=== PATIENT | female | born 1960 | race Caucasian/White ===

== ENCOUNTER → 2017-09-10 | Outpatient (CLI) | payer OTHER, SELFPAY | PROVIDERS: Visit Provider Internal Medicine | DX: Z79.01 Long term (current) use of anticoagulants (principal) | CPT/HCPCS: 36415; 85610 ==

== ENCOUNTER → 2017-11-21 16:31 | Outpatient (REF) | payer OTHER, SELFPAY ==
[2017-11-21 17:06] LABS: Basophils # 0.1 K/mm3 (0-0.2); Basophils % 0.5 % (0.1-2.0); Eosinophils # 0.2 K/mm3 (0.0-0.4); Eosinophils % 2.4 % (0.1-12.0); Hematocrit 47.3 % (37.0-47.0); Hemoglobin 15.2 g/dL (12.2-16.2); Lymphocytes # 2.9 K/mm3 (0.7-4.5); Lymphocytes % 35.1 K/mm3 (10-50); Mean Corpuscular HGB Conc 32.1 g/dL (31.8-35.4); Mean Corpuscular Hemoglobin 27.9 pg (27.0-31.2); Mean Corpuscular Volume 86.9 fl (81-99); Mean Platelet Volume 7.7 fl (7.4-10.4); Monocytes # 0.4 K/mm3 (0.1-1.0); Monocytes % 4.9 % (1.7-9.3); Neutrophils # 4.8 K/mm3 (1.8-7.8); Platelet Count 277 K/mm3 (142-424); Red Blood Count 5.44 M/mm3 (4.20-5.40); Red Cell Distribution Width 13.9 % (11.5-17.5); White Blood Count 8.3 K/mm3 (4.8-10.8)
[2017-11-21 17:09] LABS: INR 3.39 (0.9-1.1); Prothrombin Time 37.1 seconds (9.4-11.8)
[2017-11-21 17:36] LABS: Alanine Aminotransferase 43 U/L (12-78); Albumin Level 3.6 gm/dL (3.4-5.0); Alkaline Phosphatase 73 U/L (46-116); Anion Gap 12.4 mEq/L (5-15); Aspartate Amino Transferase 25 U/L (15-37); Bilirubin,Total 0.3 mg/dL (0.2-1.0); Blood Urea Nitrogen 14 mg/dL (7-18); Calcium 9.2 mg/dL (8.5-10.1); Carbon Dioxide 30 mmol/L (21.0-32.0); Chloride 100 mmol/L (98-107); Cholesterol 206 mg/dL (140-200); Creatinine,Serum 0.89 mg/dL (0.55-1.02); Estimated Glomerular Filt Rate 65 ml/min (>60); GFR (African American) 79 ML/MIN (>60); Globulin 3.7 gm/dl (1.3-3.2); Glucose 185 mg/dL (74-106); HDL Cholesterol 51 mg/dL (29-89); LDL Cholesterol 122 mg/dL (0-130); Potassium 3.4 mmoL/L (3.5-5.1); Sodium 139 mmol/L (136-145); Total Protein,Serum 7.3 gm/dL (6.4-8.2); Triglycerides 166 mg/dL (30-200); VLDL Cholesterol 33 mg/dL (0-40)
[2017-11-21 18:17] LABS: Hemoglobin A1C 10.2 % (0.0-7.0)
== END ==
LOC: LAB 16:31
PROVIDERS: Visit Provider Internal Medicine
DX: I10 Essential (primary) hypertension (principal); E11.42 Type 2 diabetes mellitus with diabetic polyneuropathy; L97.524 Non-pressure chronic ulcer of other part of left foot with necrosis of bone; Z79.01 Long term (current) use of anticoagulants; Z51.81 Encounter for therapeutic drug level monitoring; Z86.711 Personal history of pulmonary embolism; Z86.73 Personal history of transient ischemic attack (TIA), and cerebral infarction without residual deficits
CPT/HCPCS: 80053; 80061; 83036; 85025; 85610

== ENCOUNTER 2017-11-26 16:22 | Outpatient (RCR) | payer OTHER, SELFPAY | END 2017-11-26 16:23 | disposition home or self-care (01) | LOC: PT 16:22 | PROVIDERS: Family Provider Internal Medicine; PCP Internal Medicine Adolescent Medicine; Visit Provider Internal Medicine ==

== ENCOUNTER → 2018-04-03 15:43 | Outpatient (CLI) | payer OTHER, SELFPAY ==
--- NOTE | 2018-04-03 15:45 | MM_ITS ---
MM Dig screening mamm BI w/CAD CAD Screening COMPARISON: None, patient had previous mammograms more than 10 years ago and they're not available for review INDICATION: There Is a history of breast cancer in patient's maternal grandmother. TECHNIQUE: Standard CC and MLO images were obtained. R2 CAD reviewed. FINDINGS: The breasts are composed almost entirely of fat with very minimal scattered fibroglandular densities noted. There is a benign-appearing nodular density near the axillary tail the right breast likely a rectal cyst or fibroadenoma. There is no suspicious lesion and there are no suspicious microcalcifications. IMPRESSION: Fatty type breast parenchyma with no suspicious lesion seen BI-RADS Category: 2 Benign Finding(s) RECOMMENDED FOLLOW-UP: 1YR - 1 YEAR FOLLOW-UP (A letter has been sent to the patient regarding results of the study.)
== END ==
PROVIDERS: Family Provider Internal Medicine; PCP Internal Medicine Adolescent Medicine; Visit Provider Internal Medicine
DX: Z12.31 Encounter for screening mammogram for malignant neoplasm of breast (principal)
CPT/HCPCS: 77067

== ENCOUNTER → 2018-05-22 15:44 | Outpatient (CLI) | payer OTHER, SELFPAY ==
--- NOTE | 2018-05-22 15:51 | XR_ITS ---
XR foot LT min 3V Ordering Physician: Erickson Hayes Patient Age: 58 years: Female HISTORY: Chronic ulcer infection second toe. Diabetic. TECHNIQUE: 3 views left foot COMPARISON :05/16/2017 left forefoot, left toe but this radiographic study. FINDINGS Swelling is seen at the second toe most evident distally there does seem to be slight soft tissue irregularity here which may reflect the history of ulcer at tip of second toe. There is a subtle lucent 2 mm focus at the very tip of the distal tuft of second toe.... Similar feature was seen previously 05/16/2017 & overall appears fairly stable... May reflect the contour variation of distal tuft. Difficult to exclude a prior small erosion but given its stability, suggest follow-up ongoing coned-down views. Correlation clinical picture required as the soft tissue swelling does appear to be slightly more pronounced at second toe today versus 2017 . Third fourth and fifth toe intact. Only slight flexion deformity at these latter toes noted. Great toe intact. With Suggestion minor degenerative changes first MTP joint. The lateral film demonstrates generous, stable dorsal talar beaking.. On also note the generous ovoid calcification at the plantar aspect of foot likely at or inferior to the plantar aponeurosis this appears stable measuring 16 mm length mm x 8 mm.. Also note Generous plantar calcaneal spur measuring over 11 mm. & 8 prominent thick spur at the insertion Achilles tendon measuring 14-15 mmLength Also suggestion of developing degenerative changes subtalar joint.. IMPRESSION 1. Generous Soft tissue swelling at the second toe 2... Subtle tiny lucent focus distal distal tuft second toe.. Appears fairly stable since previous 2017 study and may merely reflect normal contour variation, but would suggest follow-up additional coned-down views of this second toe to address this area with maximum detailed. Possible MRI follow-up may be helpful if concern persists clinically 3.... Plantar Calcaneal spur.. Stable Additional separate Ovoid calcification at or just beneath the plantar aponeurosis mid arch.- Unchanged since prior study .
== END ==
PROVIDERS: PCP Internal Medicine; Visit Provider Internal Medicine
DX: L97.529 Non-pressure chronic ulcer of other part of left foot with unspecified severity (principal); E11.49 Type 2 diabetes mellitus with other diabetic neurological complication
CPT/HCPCS: 73630

== ENCOUNTER → 2018-06-05 15:35 | Outpatient (CLI) | payer OTHER, SELFPAY ==
[2018-06-05 16:27] LABS: INR 2.68 (0.9-1.1); Prothrombin Time 26.8 seconds (9.4-11.8)
[2018-06-05 18:09] LABS: Alanine Aminotransferase 48 U/L (12-78); Albumin Level 3.8 gm/dL (3.4-5.0); Alkaline Phosphatase 61 U/L (46-116); Anion Gap 14.8 mEq/L (5-15); Aspartate Amino Transferase 29 U/L (15-37); Bilirubin,Total 0.3 mg/dL (0.2-1.0); Blood Urea Nitrogen 24 mg/dL (7-18); Calcium 9.4 mg/dL (8.5-10.1); Carbon Dioxide 26 mmol/L (21.0-32.0); Chloride 106 mmol/L (98-107); Creatinine,Serum 1.16 mg/dL (0.55-1.02); Estimated Glomerular Filt Rate 48 ml/min (>60); GFR (African American) 58 ML/MIN (>60); Globulin 3.7 gm/dl (1.3-3.2); Glucose 241 mg/dL (74-106); Potassium 3.8 mmoL/L (3.5-5.1); Sodium 143 mmol/L (136-145); Total Protein,Serum 7.5 gm/dL (6.4-8.2)
== END ==
PROVIDERS: PCP Internal Medicine; Visit Provider Internal Medicine
DX: L02.612 Cutaneous abscess of left foot (principal); Z79.01 Long term (current) use of anticoagulants
CPT/HCPCS: 36415; 80053; 85610

== ENCOUNTER → 2018-06-12 14:07 | Outpatient (CLI) | payer OTHER, SELFPAY ==
--- NOTE | 2018-06-12 14:08 | MR_ITS ---
MR foot LT wo/w con HISTORY: Nonhealing lesion of the second toe ITS.REASON: Evaluate for osteomyelitis ORDERING PHYSICIAN: Yanet Mulligan DPM PATIENT AGE: 58 years Comparison: None TECHNIQUE: Standard multiplanar multiecho sequences are performed without and with gadolinium enhancement. FINDINGS: No obvious fracture or dislocation. No soft tissue mass. There is mild soft tissue swelling at the distal aspect of the second toe with slight increased T2 signal of the soft tissues suggesting cellulitis. No definite increased STIR signal is evident at the second toe no obvious contrast enhancement. There is some mild enhancement of the soft tissues along the plantar surface of the second toe but no obvious bone marrow enhancement. There is volume averaging artifact on the enhanced coronal images however, this is present involving all of the toes. IMPRESSION: 1. No convincing evidence of osteomyelitis of the second toe. 2. Suspect cellulitis of the second
== END ==
PROVIDERS: Family Provider Internal Medicine; PCP Internal Medicine; Visit Provider Podiatrist
DX: E08.621 Diabetes mellitus due to underlying condition with foot ulcer (principal); L03.032 Cellulitis of left toe; L97.524 Non-pressure chronic ulcer of other part of left foot with necrosis of bone
CPT/HCPCS: 73720; A9576

== ENCOUNTER → 2018-06-26 14:24 | Outpatient (CLI) | payer OTHER, SELFPAY ==
--- NOTE | 2018-06-26 14:26 | US_ITS ---
US Arterial Ankle Brachial Ind History: Diabetes, hypertension, left toe ulcer ITS.REASON: Skin Change ORDERING PHYSICIAN: Yanet Mulligan DPM PATIENT AGE: 58 years TECHNIQUE: Segmental pressures obtained of both right and left leg. These are compared to brachial blood pressure to yield index at each level sampled including summary TAINA. The data sheets from the procedure are available in PACS FINDINGS Rest study only performed today No prior studies available for comparison. Blood pressures reported are in millimeters mercury. RIGHT LEG TAINA = .9. RIGHT LEG TBI=.7 Brachial BP: 161 Thigh BP: 162 Calf BP: 151 Ankle PT: 140 Ankle DP : 136 Digit =116 LEFT LEG TAINA = .9 LEFT LEG TBI= .7 Brachial BPD: 153 Thigh BP: 163 Calf BP: 160 Ankle PT:144 Ankle DP: 126 Digit = 108 Pulses and waveforms: Normal IMPRESSION: The ABIs as reported above are within normal limits. Waveforms and pulses are also unremarkable. The TBI's are within normal limits The ABIs and TBI's are at the lower limits of normal
== END ==
PROVIDERS: Family Provider Internal Medicine; PCP Internal Medicine; Visit Provider Podiatrist
DX: R09.89 Other specified symptoms and signs involving the circulatory and respiratory systems (principal)
CPT/HCPCS: 93922

== ENCOUNTER → 2019-01-05 10:49 | Outpatient (CLI) | payer OTHER, SELFPAY ==
[2019-01-05 14:52] LABS: Anion Gap 14.8 mEq/L (5-15); Blood Urea Nitrogen 17 mg/dL (7-18); Carbon Dioxide 25 mmol/L (21.0-32.0); Chloride 103 mmol/L (98-107); Creatinine,Serum 0.91 mg/dL (0.55-1.02); Estimated Glomerular Filt Rate 63 ml/min (>60); GFR (African American) 77 ML/MIN (>60); Glucose 240 mg/dL (74-106); Potassium 3.8 mmoL/L (3.5-5.1); Sodium 139 mmol/L (136-145)
== END ==
PROVIDERS: PCP Nurse Practitioner Family; Visit Provider Nurse Practitioner Family
DX: N39.0 Urinary tract infection, site not specified (principal); E08.22 Diabetes mellitus due to underlying condition with diabetic chronic kidney disease; Z79.4 Long term (current) use of insulin
CPT/HCPCS: 36415; 80048; 87086; 87088; 87186

== ENCOUNTER → 2019-02-08 09:50 | Outpatient (CLI) | payer OTHER, SELFPAY | PROVIDERS: PCP Nurse Practitioner Family; Visit Provider Nurse Practitioner Family | DX: N39.0 Urinary tract infection, site not specified (principal) | CPT/HCPCS: 87086; 87088; 87186 ==

== ENCOUNTER → 2019-03-17 08:56 | Outpatient (CLI) | payer OTHER, SELFPAY ==
--- NOTE | 2019-03-17 09:02 | US_ITS ---
US urinary bladder ORDERING PHYSICIAN : Erickson Hayes PATIENT AGE: 59 years GENDER: Female HISTORY:ITS.REASON: RECURRENT UTIS COMPARISON: None. TECHNIQUE: Routine FINDINGS: The fluid-filled urinary bladder measures 9.5 x 6.1 x 8.1 cm with volume of 247 mL. Post void urinary bladder is 3.7 x 3.2 x 4.5 cm with residual volume of 28.8 mL. IMPRESSION: Unremarkable urinary bladder ultrasound with mild post void residual.
--- NOTE | 2019-03-17 09:02 | US_ITS ---
US Kidney ORDERING PHYSICIAN : Erickson Hayes PATIENT AGE: 59 years GENDER: Female HISTORY:ITS.REASON: RECURRENT UTI COMPARISON: None. TECHNIQUE: Routine FINDINGS: Right kidney is 12.8 x 6.3 x 8.9 cm. Left kidney is 8.3 x 3.7 x 4.4 cm. There are no shadowing echogenic foci hydronephrosis bilaterally. The echogenic appearance of the cortex compared to the liver is normal. There are no cortical lesions. IMPRESSION: Smaller left kidney which is nonspecific and could be developmental or from vascular stenosis. No acute process and no hydronephrosis or definite renal stones.
== END ==
PROVIDERS: PCP Internal Medicine; Visit Provider Internal Medicine
DX: N39.0 Urinary tract infection, site not specified (principal)
CPT/HCPCS: 76770; 76857

== ENCOUNTER → 2019-06-02 11:40 | Outpatient (CLI) | payer OTHER, SELFPAY ==
[2019-06-02 12:04] LABS: INR 2.01 (0.9-1.1); Prothrombin Time 20.2 seconds (9.4-11.8)
[2019-06-02 13:08] LABS: Alanine Aminotransferase 37 U/L (12-78); Albumin Level 3.2 gm/dL (3.4-5.0); Albumin/Globulin Ratio 0.9 (1.1-1.8); Alkaline Phosphatase 59 U/L (46-116); Aspartate Amino Transferase 23 U/L (15-37); Bilirubin,Total 0.3 mg/dL (0.2-1.0); Blood Urea Nitrogen 16 mg/dL (7-18); Calcium 9.1 mg/dL (8.5-10.1); Carbon Dioxide 30 mmol/L (21.0-32.0); Chloride 105 mmol/L (98-107); Chol/HDL Ratio 3.4 (1-3.5); Cholesterol 169 mg/dL (140-200); Creatinine,Serum 1.03 mg/dL (0.55-1.02); Estimated Glomerular Filt Rate 55 ml/min (>60); GFR (African American) 66 ML/MIN (>60); Globulin 3.5 gm/dl (1.3-3.2); Glucose 109 mg/dL (74-106); HDL Cholesterol 50 mg/dL (29-89); LDL Cholesterol 96 mg/dL (0-130); Sodium 142 mmol/L (136-145); Thyroid Stimulating Hormone 2.91 uIU/ml (0.358-3.740); Total Protein,Serum 6.7 gm/dL (6.4-8.2); Triglycerides 113 mg/dL (30-200); VLDL Cholesterol 23 mg/dL (0-40)
== END ==
PROVIDERS: Visit Provider Internal Medicine
DX: E78.5 Hyperlipidemia, unspecified (principal); I82.409 Acute embolism and thrombosis of unspecified deep veins of unspecified lower extremity
CPT/HCPCS: 36415; 80053; 80061; 84443; 85610

== ENCOUNTER → 2019-07-05 09:55 | Outpatient (POV) | payer OTHER, SELFPAY | PROVIDERS: Visit Provider Specialist | DX: M79.602 Pain in left arm (principal); M79.601 Pain in right arm; R20.2 Paresthesia of skin | CPT/HCPCS: 95886; 95910 ==

== ENCOUNTER → 2021-04-13 15:58 | Outpatient (CLI) | payer OTHER, SELFPAY ==
[2021-04-13 16:17] LABS: Basophils # 0.1 K/mm3 (0-0.2); Basophils % 0.7 % (0.1-2.0); Eosinophils # 0.2 K/mm3 (0.0-0.4); Eosinophils % 2.8 % (0.1-12.0); Hematocrit 40.5 % (37.0-47.0); Hemoglobin 13.4 g/dL (12.2-16.2); Lymphocytes # 2.6 K/mm3 (0.7-4.5); Lymphocytes % 34.6 % (10-50); Mean Corpuscular HGB Conc 33.1 g/dL (31.8-35.4); Mean Corpuscular Hemoglobin 27.6 pg (27.0-31.2); Mean Corpuscular Volume 83.4 fl (81-99); Mean Platelet Volume 7.6 fl (7.4-10.4); Monocytes # 0.4 K/mm3 (0.1-1.0); Monocytes % 5.6 % (1.7-9.3); Neutrophils # 4.3 K/mm3 (1.8-7.8); Neutrophils % 56.3 % (37.0-80.0); Platelet Count 261 K/mm3 (142-424); Red Blood Count 4.86 M/mm3 (4.20-5.40); Red Cell Distribution Width 15.2 % (11.5-17.5); White Blood Count 7.6 K/mm3 (4.8-10.8)
[2021-04-13 16:31] LABS: Creatinine,Urine Random 125 mg/dL (Not Estab.)
[2021-04-13 16:34] LABS: Microalbumin < 6.000 mg/L (0-16.7)
[2021-04-13 16:35] LABS: INR 2.76 (0.9-1.1); Prothrombin Time 27.3 seconds (9.2-12.1)
[2021-04-13 16:38] LABS: Hemoglobin A1C 7.2 % (4.0-6.0)
[2021-04-13 16:45] LABS: Chloride 105 mmol/L (98-107); Potassium 4.2 mmoL/L (3.5-5.1); Sodium 140 mmol/L (136-145)
[2021-04-13 16:47] LABS: Alanine Aminotransferase 22 U/L (12-78); Aspartate Amino Transferase 27 U/L (14-36); Blood Urea Nitrogen 16 mg/dl (7-17); Estimated Glomerular Filt Rate 63 ml/min (>60); GFR (African American) 77 ML/MIN (>60)
[2021-04-13 16:48] LABS: Albumin/Globulin Ratio 1.4 (1.1-1.8); Alkaline Phosphatase 77 U/L (38-126); Anion Gap 13.2 mEq/L (5-15); Bilirubin,Total 0.5 mg/dl (0.2-1.3); Calcium 9.4 mg/dl (8.4-10.2); Carbon Dioxide 26 mmol/L (22.0-30.0); Chol/HDL Ratio 3.3 (1-3.5); Cholesterol 170 mg/dl (140-200); Globulin 2.9 g/dL (1.3-3.2); Glucose 100 mg/dl (74-100); HDL Cholesterol 51 mg/dl (40-60); Total Protein,Serum 6.9 g/dl (6.3-8.2); Triglycerides 128 mg/dl (30-150); VLDL Cholesterol 26 mg/dL (0-40)
[2021-04-13 16:59] LABS: Direct LDL Cholesterol 98.94 mg/dL (100-129)
== END ==
PROVIDERS: Visit Provider Internal Medicine
DX: E11.42 Type 2 diabetes mellitus with diabetic polyneuropathy (principal); I10 Essential (primary) hypertension; E03.9 Hypothyroidism, unspecified; I87.2 Venous insufficiency (chronic) (peripheral); E78.5 Hyperlipidemia, unspecified; Z86.73 Personal history of transient ischemic attack (TIA), and cerebral infarction without residual deficits; Z86.711 Personal history of pulmonary embolism; Z79.4 Long term (current) use of insulin
CPT/HCPCS: 80053; 80061; 82043; 82570; 83036; 84443; 85025; 85610

== ENCOUNTER → 2021-04-23 17:12 | Outpatient (CLI) | payer OTHER, SELFPAY ==
[2021-04-23 18:03] LABS: Basophils # 0.2 K/mm3 (0-0.2); Basophils % 1.8 % (0.1-2.0); Eosinophils # 0.2 K/mm3 (0.0-0.4); Eosinophils % 2.1 % (0.1-12.0); Hematocrit 41.3 % (37.0-47.0); Hemoglobin 13.5 g/dL (12.2-16.2); Lymphocytes # 3.2 K/mm3 (0.7-4.5); Lymphocytes % 28.2 % (10-50); Mean Corpuscular HGB Conc 32.8 g/dL (31.8-35.4); Mean Corpuscular Hemoglobin 27.6 pg (27.0-31.2); Mean Corpuscular Volume 84.2 fl (81-99); Mean Platelet Volume 7.1 fl (7.4-10.4); Monocytes # 0.5 K/mm3 (0.1-1.0); Monocytes % 4.6 % (1.7-9.3); Neutrophils # 7.3 K/mm3 (1.8-7.8); Neutrophils % 63.4 % (37.0-80.0); Platelet Count 333 K/mm3 (142-424); Red Blood Count 4.91 M/mm3 (4.20-5.40); Red Cell Distribution Width 15.3 % (11.5-17.5); White Blood Count 11.5 K/mm3 (4.8-10.8)
[2021-04-23 19:45] LABS: Chloride 106 mmol/L (98-107); Potassium 3.9 mmoL/L (3.5-5.1); Sodium 144 mmol/L (136-145)
[2021-04-23 19:48] LABS: Alanine Aminotransferase 23 U/L (12-78); Albumin Level 4.1 g/dl (3.5-5.0); Albumin/Globulin Ratio 1.4 (1.1-1.8); Alkaline Phosphatase 78 U/L (38-126); Anion Gap 14.9 mEq/L (5-15); Aspartate Amino Transferase 26 U/L (14-36); Bilirubin,Total 0.3 mg/dl (0.2-1.3); Blood Urea Nitrogen 21 mg/dl (7-17); Calcium 9.6 mg/dl (8.4-10.2); Carbon Dioxide 27 mmol/L (22.0-30.0); Estimated Glomerular Filt Rate 46 ml/min (>60); GFR (African American) 55 ML/MIN (>60); Glucose 101 mg/dl (74-100); Total Protein,Serum 7.1 g/dl (6.3-8.2)
[2021-04-23 21:12] LABS: Erythrocyte Sedimentation Rate 42 mm/hr (0-30)
== END ==
PROVIDERS: Visit Provider Podiatrist
DX: L97.519 Non-pressure chronic ulcer of other part of right foot with unspecified severity (principal); Z51.89 Encounter for other specified aftercare
CPT/HCPCS: 36415; 80053; 85025; 85651; 86140

== ENCOUNTER → 2021-04-24 13:10 | Outpatient (CLI) | payer OTHER, SELFPAY ==
--- NOTE | 2021-04-24 13:18 | XR_ITS ---
PROCEDURE: XR FOOT WT BEARING RT 3V CLINICAL INDICATION: wound Diabetic ulcer great toe COMPARISON: CR [id number] XR foot LT min 3V from 05/22/2018 FINDINGS: Moderate to severe pes planus. Prominent enthesophytes at the Achilles insertion and mild prominent calcaneal spur. Osteoarthritic changes of the talonavicular joint. Prominent calcific density along the anterior neck of the talus and distal talus measuring 15 mm. Osteoarthritic change of the navicular cuneiform joint and the calcaneocuboid joint. 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 Hammertoe deformity digits 2 through 5. No obvious bony destructive process. Other findings:None. IMPRESSION: Moderate to severe pes planus with numerous degenerative/osteoarthritic changes as described above. No obvious bony erosive change that would indicate acute osteomyelitis Dictated by: Gokul Quintero MD 04/24/2021 14:59 Gokul Quintero MD in [place] 04/24/2021 14:59
== END ==
PROVIDERS: PCP Internal Medicine; Visit Provider Podiatrist
DX: Z51.89 Encounter for other specified aftercare (principal); L97.512 Non-pressure chronic ulcer of other part of right foot with fat layer exposed
CPT/HCPCS: 73630

== ENCOUNTER → 2021-07-23 16:17 | Outpatient (CLI) | payer OTHER, SELFPAY ==
[2021-07-23 16:59] LABS: INR 2.19 (0.9-1.1); Prothrombin Time 23.4 seconds (10.1-12.5)
== END ==
PROVIDERS: Visit Provider Internal Medicine
DX: Z51.81 Encounter for therapeutic drug level monitoring (principal); Z79.01 Long term (current) use of anticoagulants
CPT/HCPCS: 36415; 85610

== ENCOUNTER → 2021-09-19 14:32 | Outpatient (CLI) | payer OTHER, SELFPAY ==
--- NOTE | 2021-09-19 14:35 | XR_ITS ---
PROCEDURE: XR KNEE RT 3V CLINICAL INDICATION: RT KNEE INJURY COMPARISON: No exams were available for comparison FINDINGS: No fracture or dislocation. No lytic or blastic change. There is normal mineralization. There are mild tricompartmental osteoarthritic changes. There is an area of exostosis of the proximal femur posteriorly consistent with a tug lesion as a normal variant Other findings:None. IMPRESSION: No acute findings. Dictated by: Gokul Quintero MD 09/19/2021 15:02 Gokul Quintero MD in [place] 09/19/2021 15:02
== END ==
PROVIDERS: PCP Internal Medicine; Visit Provider Internal Medicine
DX: M25.561 Pain in right knee (principal); S80.911A Unspecified superficial injury of right knee, initial encounter
CPT/HCPCS: 73562

== ENCOUNTER → 2022-01-18 10:55 | Outpatient (CLI) | payer OTHER, SELFPAY ==
--- NOTE | 2022-01-18 11:26 | ECG_ITS ---
APPROVED REPORT Exam: Resting ECG HR:67 bpm ECG Measurements Heart Rate 67 AXES AK 173 P 53 QRSd 94 QRS -27 QT 394 T 56 QTc 409 Conclusion SINUS RHYTHM LOW QRS VOLTAGE IN PRECORDIAL LEADS [QRS Poor R Wave Progression BORDERLINE ECG UNCONFIRMED REPORT Electronically signed by : Erickson Hayes MD 01/21/2022 09:50:24
[2022-01-18 13:01] LABS: Alanine Aminotransferase 47 U/L (12-78); Albumin Level 3.9 g/dl (3.5-5.0); Albumin/Globulin Ratio 1.5 (1.1-1.8); Alkaline Phosphatase 68 U/L (38-126); Aspartate Amino Transferase 56 U/L (14-36); Bilirubin,Total 0.5 mg/dl (0.2-1.3); Blood Urea Nitrogen 26 mg/dl (7-17); Calcium 9.5 mg/dl (8.4-10.2); Carbon Dioxide 25 mmol/L (22.0-30.0); Chloride 104 mmol/L (98-107); Chol/HDL Ratio 3.7 (1-3.5); Cholesterol 193 mg/dl (140-200); Estimated Glomerular Filt Rate 56 ml/min (>60); GFR (African American) 68 ML/MIN (>60); Globulin 2.6 g/dL (1.3-3.2); Glucose 150 mg/dl (74-100); HDL Cholesterol 52 mg/dl (40-60); Magnesium 1.5 mg/dl (1.6-2.3); Sodium 139 mmol/L (136-145); Total Protein,Serum 6.5 g/dl (6.3-8.2); Triglycerides 130 mg/dl (30-150); VLDL Cholesterol 26 mg/dL (0-40)
[2022-01-18 13:12] LABS: Direct LDL Cholesterol 104.85 mg/dL (100-129)
[2022-01-18 13:18] LABS: 25-OH Vitamin D, Total < 12.8 ng/mL (30-100)
[2022-01-18 13:32] LABS: Thyroid Stimulating Hormone 6.57 uIU/mL (0.465-4.68)
[2022-01-18 13:51] LABS: Hemoglobin A1C 7.4 % (4.0-6.0)
[2022-01-18 14:09] LABS: Activated Partial Thrombo Time 33.7 seconds (22.8-30.6); INR 1.77 (0.9-1.1); Prothrombin Time 19.2 seconds (10.1-12.5)
[2022-01-18 14:46] LABS: Basophils # 0.1 K/mm3 (0-0.2); Basophils % 1.3 % (0.1-2.0); Eosinophils # 0.2 K/mm3 (0.0-0.4); Eosinophils % 2.1 % (0.1-12.0); Hematocrit 44.1 % (37.0-47.0); Hemoglobin 14.1 g/dL (12.2-16.2); Lymphocytes % 28.4 % (10-50); Mean Corpuscular HGB Conc 32.1 g/dL (31.8-35.4); Mean Corpuscular Volume 90.4 fl (81-99); Mean Platelet Volume 7.5 fl (7.4-10.4); Monocytes # 0.5 K/mm3 (0.1-1.0); Monocytes % 6.2 % (1.7-9.3); Neutrophils # 4.5 K/mm3 (1.8-7.8); Platelet Count 273 K/mm3 (142-424); Red Blood Count 4.88 M/mm3 (4.20-5.40); Red Cell Distribution Width 14.9 % (11.5-17.5); White Blood Count 7.2 K/mm3 (4.8-10.8)
[2022-01-18 17:46] LABS: Microalbumin/Creatinine Ratio 8.7
[2022-01-18 17:51] LABS: Creatinine,Urine Random 110 mg/dL (Not Estab.)
[2022-01-19 09:27] LABS: Prealbumin 20 mg/dL (10-36)
== END ==
PROVIDERS: PCP Internal Medicine; Visit Provider Internal Medicine
DX: Z01.810 Encounter for preprocedural cardiovascular examination (principal); E11.42 Type 2 diabetes mellitus with diabetic polyneuropathy; I10 Essential (primary) hypertension; E78.5 Hyperlipidemia, unspecified; E55.9 Vitamin D deficiency, unspecified; Z86.711 Personal history of pulmonary embolism; Z51.81 Encounter for therapeutic drug level monitoring; Z79.01 Long term (current) use of anticoagulants; Z79.4 Long term (current) use of insulin
CPT/HCPCS: 36415; 80053; 80061; 82043; 82306; 82570; 83036; 83735; 84134; 84443; 85025; 85610; 85730; 93005

== ENCOUNTER → 2022-02-07 14:28 | Outpatient (CLI) | payer OTHER, SELFPAY ==
[2022-02-07 16:02] LABS: INR 1.84 (0.9-1.1); Prothrombin Time 19.9 seconds (10.1-12.5)
== END ==
PROVIDERS: Visit Provider Physician Assistant
DX: M17.11 Unilateral primary osteoarthritis, right knee (principal); R79.1 Abnormal coagulation profile
CPT/HCPCS: 36415; 85610

== ENCOUNTER → 2022-02-25 12:15 | Outpatient (CLI) | payer OTHER, SELFPAY ==
[2022-02-25 13:21] LABS: INR 2.03 (0.9-1.1); Prothrombin Time 21.8 seconds (10.1-12.5)
== END ==
PROVIDERS: PCP Internal Medicine; Visit Provider Orthopaedic Surgery
DX: Z51.81 Encounter for therapeutic drug level monitoring (principal); Z79.01 Long term (current) use of anticoagulants
CPT/HCPCS: 36415; 85610

== ENCOUNTER → 2022-04-17 17:22 | Outpatient (CLI) | payer OTHER, SELFPAY | PROVIDERS: PCP Internal Medicine; Visit Provider Internal Medicine | DX: Z51.81 Encounter for therapeutic drug level monitoring (principal); Z79.01 Long term (current) use of anticoagulants; Z86.73 Personal history of transient ischemic attack (TIA), and cerebral infarction without residual deficits; Z86.711 Personal history of pulmonary embolism ==

== ENCOUNTER → 2022-07-17 17:03 | Outpatient (CLI) | payer OTHER, SELFPAY ==
[2022-07-17 18:32] LABS: Basophils # 0.1 K/mm3 (0-0.2); Basophils % 0.9 % (0.1-2.0); Eosinophils # 0.3 K/mm3 (0.0-0.4); Eosinophils % 3.5 % (0.1-12.0); Hematocrit 43.8 % (37.0-47.0); Hemoglobin 14.1 g/dL (12.2-16.2); Mean Corpuscular HGB Conc 32.1 g/dL (31.8-35.4); Mean Corpuscular Volume 90.3 fl (81-99); Mean Platelet Volume 8.2 fl (7.4-10.4); Monocytes # 0.4 K/mm3 (0.1-1.0); Monocytes % 4.9 % (1.7-9.3); Neutrophils # 4.6 K/mm3 (1.8-7.8); Neutrophils % 63.6 % (37.0-80.0); Platelet Count 285 K/mm3 (142-424); Red Blood Count 4.85 M/mm3 (4.20-5.40); Red Cell Distribution Width 14.2 % (11.5-17.5); White Blood Count 7.2 K/mm3 (4.8-10.8)
[2022-07-17 18:36] LABS: Prothrombin Time 27.6 seconds (10.1-12.5)
[2022-07-17 19:26] LABS: Alanine Aminotransferase 39 U/L (12-78); Albumin Level 3.8 g/dl (3.5-5.0); Albumin/Globulin Ratio 1.4 (1.1-1.8); Alkaline Phosphatase 99 U/L (38-126); Anion Gap 17.4 mEq/L (5-15); Aspartate Amino Transferase 48 U/L (14-36); Bilirubin,Total 0.6 mg/dl (0.2-1.3); Blood Urea Nitrogen 23 mg/dl (7-17); Calcium 9.3 mg/dl (8.4-10.2); Carbon Dioxide 29 mmol/L (22.0-30.0); Chloride 96 mmol/L (98-107); Chol/HDL Ratio 3.4 (1-3.5); Cholesterol 189 mg/dl (140-200); Estimated Glomerular Filt Rate 50 ml/min (>60); GFR (African American) 61 ML/MIN (>60); Globulin 2.7 g/dL (1.3-3.2); Glucose 200 mg/dl (74-100); HDL Cholesterol 55 mg/dl (40-60); Magnesium 1.4 mg/dl (1.6-2.3); Potassium 4.4 mmoL/L (3.5-5.1); Sodium 138 mmol/L (136-145); Total Protein,Serum 6.5 g/dl (6.3-8.2); Triglycerides 158 mg/dl (30-150); VLDL Cholesterol 32 mg/dL (0-40)
[2022-07-17 19:49] LABS: Direct LDL Cholesterol 105.25 mg/dL (100-129)
[2022-07-17 19:57] LABS: Thyroid Stimulating Hormone 1.72 uIU/mL (0.465-4.68)
[2022-07-17 20:00] LABS: 25-OH Vitamin D, Total < 12.8 ng/mL (30-100)
[2022-07-17 20:02] LABS: Hemoglobin A1C 7.9 % (4.0-6.0)
== END ==
PROVIDERS: PCP Internal Medicine; Visit Provider Internal Medicine
DX: E11.42 Type 2 diabetes mellitus with diabetic polyneuropathy (principal); E11.59 Type 2 diabetes mellitus with other circulatory complications; I10 Essential (primary) hypertension; E03.9 Hypothyroidism, unspecified; E78.5 Hyperlipidemia, unspecified; E55.9 Vitamin D deficiency, unspecified; Z86.711 Personal history of pulmonary embolism; Z86.73 Personal history of transient ischemic attack (TIA), and cerebral infarction without residual deficits; Z51.81 Encounter for therapeutic drug level monitoring; Z79.01 Long term (current) use of anticoagulants; Z79.4 Long term (current) use of insulin
CPT/HCPCS: 80053; 80061; 82306; 83036; 83735; 84443; 85025; 85610

== ENCOUNTER → 2023-01-15 12:44 | Outpatient (CLI) | payer BC, SELFPAY ==
[2023-01-15 14:46] LABS: Microalbumin/Creatinine Ratio 43.5
[2023-01-15 14:49] LABS: Creatinine,Urine Random 140 mg/dL (Not Estab.)
== END ==
PROVIDERS: PCP Internal Medicine; Visit Provider Internal Medicine
DX: E11.42 Type 2 diabetes mellitus with diabetic polyneuropathy (principal); E03.9 Hypothyroidism, unspecified; E78.5 Hyperlipidemia, unspecified; I87.2 Venous insufficiency (chronic) (peripheral); I10 Essential (primary) hypertension; Z86.711 Personal history of pulmonary embolism; Z51.81 Encounter for therapeutic drug level monitoring; Z79.01 Long term (current) use of anticoagulants; Z79.4 Long term (current) use of insulin
CPT/HCPCS: 82043; 82570

== ENCOUNTER → 2023-02-19 16:48 | Outpatient (CLI) | payer BC, SELFPAY ==
[2023-02-19 18:14] LABS: INR 3.14 (0.9-1.1); Prothrombin Time 31.8 seconds (10.1-12.5)
[2023-02-19 19:10] LABS: Alanine Aminotransferase 40 U/L (12-78); Albumin Level 3.7 g/dl (3.5-5.0); Albumin/Globulin Ratio 1.3 (1.1-1.8); Alkaline Phosphatase 68 U/L (38-126); Anion Gap 13.5 mEq/L (5-15); Aspartate Amino Transferase 46 U/L (14-36); Bilirubin,Total 0.4 mg/dl (0.2-1.3); Blood Urea Nitrogen 19 mg/dl (7-17); Calcium 9.7 mg/dl (8.4-10.2); Carbon Dioxide 31 mmol/L (22.0-30.0); Chloride 100 mmol/L (98-107); Chol/HDL Ratio 3.1 (1-3.5); Cholesterol 192 mg/dl (140-200); Estimated Glomerular Filt Rate 56 ml/min (>60); GFR (African American) 68 ML/MIN (>60); Globulin 2.9 g/dL (1.3-3.2); Glucose 195 mg/dl (74-100); HDL Cholesterol 61 mg/dl (40-60); Magnesium 1.4 mg/dl (1.6-2.3); Potassium 4.5 mmoL/L (3.5-5.1); Sodium 140 mmol/L (136-145); Total Protein,Serum 6.6 g/dl (6.3-8.2); Triglycerides 187 mg/dl (30-150); VLDL Cholesterol 37 mg/dL (0-40)
[2023-02-19 19:25] LABS: Hemoglobin A1C 7.4 % (4.0-6.0)
[2023-02-19 19:27] LABS: 25-OH Vitamin D, Total 31.8 ng/mL (30-100)
[2023-02-19 19:59] LABS: Vitamin B12 442 pg/mL (239-931)
== END ==
PROVIDERS: PCP Internal Medicine; Visit Provider Internal Medicine
DX: R79.1 Abnormal coagulation profile (principal); E11.9 Type 2 diabetes mellitus without complications; Z79.4 Long term (current) use of insulin; Z51.81 Encounter for therapeutic drug level monitoring; Z79.01 Long term (current) use of anticoagulants
CPT/HCPCS: 36415; 80053; 80061; 82306; 82607; 83036; 83735; 85610

== ENCOUNTER → 2023-03-07 16:55 | Outpatient (CLI) | payer BC, SELFPAY | PROVIDERS: PCP Internal Medicine; Visit Provider Internal Medicine | DX: N12 Tubulo-interstitial nephritis, not specified as acute or chronic (principal) | CPT/HCPCS: 87086; 87088; 87186 ==

== ENCOUNTER → 2023-04-08 16:41 | Outpatient (CLI) | payer BC, SELFPAY ==
[2023-04-08 17:27] LABS: INR 1.36 (0.9-1.1); Prothrombin Time 14.4 seconds (10.1-12.5)
== END ==
PROVIDERS: PCP Internal Medicine; Visit Provider Internal Medicine
DX: Z51.81 Encounter for therapeutic drug level monitoring (principal); Z79.01 Long term (current) use of anticoagulants; Z86.711 Personal history of pulmonary embolism
CPT/HCPCS: 85610

== ENCOUNTER → 2023-07-09 14:43 | Outpatient (CLI) | payer BC, SELFPAY ==
[2023-07-09 15:44] LABS: Basophils % 0.6 % (0.1-2.0); Eosinophils # 0.2 K/mm3 (0.0-0.4); Eosinophils % 2.3 % (0.1-12.0); Hematocrit 42.5 % (37.0-47.0); Hemoglobin 14.3 g/dL (12.2-16.2); Lymphocytes % 26.5 % (10-50); Mean Corpuscular HGB Conc 33.7 g/dL (31.8-35.4); Mean Corpuscular Hemoglobin 30.1 pg (27.0-31.2); Mean Corpuscular Volume 89.4 fl (81-99); Mean Platelet Volume 7.4 fl (7.4-10.4); Monocytes # 0.4 K/mm3 (0.1-1.0); Monocytes % 5.1 % (1.7-9.3); Neutrophils % 65.5 % (37.0-80.0); Platelet Count 239 K/mm3 (142-424); Red Blood Count 4.75 M/mm3 (4.20-5.40); Red Cell Distribution Width 14.4 % (11.5-17.5); White Blood Count 7.7 K/mm3 (4.8-10.8)
[2023-07-09 16:34] LABS: INR 3.68 (0.9-1.1); Prothrombin Time 36.5 seconds (10.1-12.5)
[2023-07-09 16:35] LABS: Alanine Aminotransferase 35 U/L (12-78); Albumin Level 3.7 g/dl (3.5-5.0); Albumin/Globulin Ratio 1.2 (1.1-1.8); Alkaline Phosphatase 74 U/L (38-126); Anion Gap 17.3 mEq/L (5-15); Aspartate Amino Transferase 41 U/L (14-36); Bilirubin,Total 0.6 mg/dl (0.2-1.3); Blood Urea Nitrogen 19 mg/dl (7-17); Carbon Dioxide 23 mmol/L (22.0-30.0); Chloride 103 mmol/L (98-107); Chol/HDL Ratio 3.5 (1-3.5); Cholesterol 187 mg/dl (140-200); Estimated Glomerular Filt Rate 56 ml/min (>60); GFR (African American) 68 ML/MIN (>60); Globulin 3.1 g/dL (1.3-3.2); Glucose 189 mg/dl (74-100); HDL Cholesterol 54 mg/dl (40-60); Potassium 4.3 mmoL/L (3.5-5.1); Sodium 139 mmol/L (136-145); Total Protein,Serum 6.8 g/dl (6.3-8.2); Triglycerides 111 mg/dl (30-150); VLDL Cholesterol 22 mg/dL (0-40)
[2023-07-09 16:46] LABS: Direct LDL Cholesterol 102.72 mg/dL (100-129)
[2023-07-09 17:05] LABS: Thyroid Stimulating Hormone 2.24 uIU/mL (0.465-4.68)
[2023-07-09 19:36] LABS: Hemoglobin A1C 7.2 % (4.0-6.0)
== END ==
PROVIDERS: PCP Internal Medicine; Visit Provider Internal Medicine
DX: E11.42 Type 2 diabetes mellitus with diabetic polyneuropathy (principal); E03.9 Hypothyroidism, unspecified; E78.5 Hyperlipidemia, unspecified; I10 Essential (primary) hypertension; E66.01 Morbid (severe) obesity due to excess calories; Z86.711 Personal history of pulmonary embolism; Z51.81 Encounter for therapeutic drug level monitoring; Z79.01 Long term (current) use of anticoagulants; Z79.4 Long term (current) use of insulin
CPT/HCPCS: 80053; 80061; 83036; 84443; 85025; 85610

== ENCOUNTER 2023-10-08 16:30 | Outpatient (CLI) | payer BC, SELFPAY ==
[2023-10-08 17:19] LABS: INR 2.51 (0.9-1.1); Prothrombin Time 25.5 seconds (10.1-12.5)
== END 2023-10-08 23:59 ==
LOC: LAB.DROPOF 16:32
PROVIDERS: PCP Internal Medicine; Visit Provider Internal Medicine
DX: Z79.01 Long term (current) use of anticoagulants (principal)
CPT/HCPCS: 85610

== ENCOUNTER 2024-01-06 16:22 | Outpatient (CLI) | payer BC, SELFPAY ==
[2024-01-06 16:47] LABS: Basophils # 0.1 K/mm3 (0-0.2); Eosinophils # 0.3 K/mm3 (0.0-0.4); Eosinophils % 3.5 % (0.1-12.0); Hematocrit 45.1 % (37.0-47.0); Hemoglobin 14.3 g/dL (12.2-16.2); Lymphocytes # 2.3 K/mm3 (0.7-4.5); Lymphocytes % 25.7 % (10-50); Mean Corpuscular HGB Conc 31.7 g/dL (31.8-35.4); Mean Corpuscular Volume 91.4 fl (81-99); Monocytes # 0.5 K/mm3 (0.1-1.0); Monocytes % 5.2 % (1.7-9.3); Neutrophils # 5.8 K/mm3 (1.8-7.8); Neutrophils % 64.6 % (37.0-80.0); Platelet Count 311 K/mm3 (142-424); Red Blood Count 4.94 M/mm3 (4.20-5.40); Red Cell Distribution Width 14.2 % (11.5-17.5)
[2024-01-06 16:58] LABS: INR 3.31 (0.9-1.1); Prothrombin Time 33.1 seconds (10.1-12.5)
[2024-01-06 18:02] LABS: Alanine Aminotransferase 29 U/L (12-78); Albumin Level 3.7 g/dl (3.5-5.0); Albumin/Globulin Ratio 1.2 (1.1-1.8); Alkaline Phosphatase 80 U/L (38-126); Aspartate Amino Transferase 31 U/L (14-36); Bilirubin,Total 0.4 mg/dl (0.2-1.3); Blood Urea Nitrogen 19 mg/dl (7-17); Calcium 10.1 mg/dl (8.4-10.2); Carbon Dioxide 28 mmol/L (22.0-30.0); Chloride 103 mmol/L (98-107); Chol/HDL Ratio 2.8 (1-3.5); Cholesterol 181 mg/dl (140-200); Estimated Glomerular Filt Rate 50 ml/min (>60); GFR (African American) 61 ML/MIN (>60); Glucose 172 mg/dl (74-100); HDL Cholesterol 64 mg/dl (40-60); Sodium 140 mmol/L (136-145); Total Protein,Serum 6.7 g/dl (6.3-8.2); Triglycerides 127 mg/dl (30-150); VLDL Cholesterol 25 mg/dL (0-40)
[2024-01-06 18:13] LABS: Direct LDL Cholesterol 90.33 mg/dL (100-129)
[2024-01-06 18:31] LABS: Thyroid Stimulating Hormone 1.91 uIU/mL (0.465-4.68)
[2024-01-06 20:00] LABS: Hemoglobin A1C 7.9 % (4.0-6.0)
== END 2024-01-06 23:59 | disposition home or self-care (01) ==
LOC: LAB.DROPOF 16:22
PROVIDERS: PCP Internal Medicine; Visit Provider Internal Medicine
DX: E11.40 Type 2 diabetes mellitus with diabetic neuropathy, unspecified (principal); I10 Essential (primary) hypertension; E03.9 Hypothyroidism, unspecified; I87.2 Venous insufficiency (chronic) (peripheral); G47.33 Obstructive sleep apnea (adult) (pediatric); G47.10 Hypersomnia, unspecified; Z79.01 Long term (current) use of anticoagulants; Z86.711 Personal history of pulmonary embolism; Z86.73 Personal history of transient ischemic attack (TIA), and cerebral infarction without residual deficits; Z79.4 Long term (current) use of insulin
CPT/HCPCS: 80053; 80061; 83036; 84443; 85025; 85610

== ENCOUNTER 2024-01-22 13:03 | Outpatient (CLI) | payer BC, SELFPAY | END 2024-01-22 23:59 | disposition home or self-care (01) | PROVIDERS: PCP Internal Medicine; Visit Provider Internal Medicine | DX: G47.33 Obstructive sleep apnea (adult) (pediatric) (principal) | CPT/HCPCS: 94762 ==

== ENCOUNTER 2024-04-07 15:06 | Outpatient (CLI) | payer MEDICARE, BC, SELFPAY ==
[2024-04-07 15:45] LABS: INR 6.04 (0.9-1.1); Prothrombin Time 56.6 seconds (10.1-12.5)
== END 2024-04-07 23:59 | disposition home or self-care (01) ==
LOC: LAB.DROPOF 15:07
PROVIDERS: PCP Internal Medicine; Visit Provider Internal Medicine
DX: Z79.01 Long term (current) use of anticoagulants (principal); Z51.81 Encounter for therapeutic drug level monitoring; E11.49 Type 2 diabetes mellitus with other diabetic neurological complication
CPT/HCPCS: 85610

== ENCOUNTER 2024-07-08 14:43 | Outpatient (CLI) | payer MEDICARE, SELFPAY ==
[2024-07-08 14:47] LABS: Basophils # 0.1 K/mm3 (0-0.2); Basophils % 0.8 % (0.1-2.0); Eosinophils # 0.4 K/mm3 (0.0-0.4); Eosinophils % 4.7 % (0.1-12.0); Hematocrit 41.2 % (37.0-47.0); Hemoglobin 13.9 g/dL (12.2-16.2); Lymphocytes % 22.9 % (10-50); Mean Corpuscular HGB Conc 33.6 g/dL (31.8-35.4); Mean Corpuscular Hemoglobin 29.4 pg (27.0-31.2); Mean Corpuscular Volume 87.3 fl (81-99); Mean Platelet Volume 7.2 fl (7.4-10.4); Monocytes # 0.5 K/mm3 (0.1-1.0); Monocytes % 5.4 % (1.7-9.3); Neutrophils # 5.9 K/mm3 (1.8-7.8); Neutrophils % 66.3 % (37.0-80.0); Platelet Count 287 K/mm3 (142-424); Red Blood Count 4.72 M/mm3 (4.20-5.40); Red Cell Distribution Width 14.4 % (11.5-17.5); White Blood Count 8.9 K/mm3 (4.8-10.8)
[2024-07-08 14:55] LABS: INR 1.75 (0.9-1.1); Prothrombin Time 18.5 seconds (10.1-12.5)
[2024-07-08 15:14] LABS: Alanine Aminotransferase 27 U/L (12-78); Albumin Level 3.8 g/dl (3.5-5.0); Albumin/Globulin Ratio 1.4 (1.1-1.8); Alkaline Phosphatase 54 U/L (38-126); Aspartate Amino Transferase 30 U/L (14-36); Bilirubin,Total 0.5 mg/dl (0.2-1.3); Calcium 9.4 mg/dl (8.4-10.2); Carbon Dioxide 28 mmol/L (22.0-30.0); Chloride 108 mmol/L (98-107); Chol/HDL Ratio 3.6 (1-3.5); Cholesterol 177 mg/dl (140-200); Globulin 2.8 g/dL (1.3-3.2); Glucose 152 mg/dl (74-100); HDL Cholesterol 49 mg/dl (40-60); Magnesium 1.3 mg/dl (1.6-2.3); Sodium 139 mmol/L (136-145); Total Protein,Serum 6.6 g/dl (6.3-8.2); Triglycerides 138 mg/dl (30-150); VLDL Cholesterol 28 mg/dL (0-40)
[2024-07-08 15:17] LABS: Blood Urea Nitrogen 18 mg/dl (7-17)
[2024-07-08 15:18] LABS: Estimated Glomerular Filt Rate 50 ml/min (>60); GFR (African American) 60 ML/MIN (>60)
[2024-07-08 15:24] LABS: Direct LDL Cholesterol 95.31 mg/dL (100-129)
[2024-07-08 15:31] LABS: Hemoglobin A1C 7.2 % (4.0-6.0)
[2024-07-08 15:44] LABS: Thyroid Stimulating Hormone 2.87 uIU/mL (0.465-4.68)
[2024-07-08 16:03] LABS: Vitamin B12 503 pg/mL (239-931)
[2024-07-22 08:22] LABS: 1,25 Dihydroxy Vitamin D 43 pg/mL (.); 1,25-Dihydroxy, Vitamin D-2 <10 pg/mL (.); 1,25-Dihydroxy, Vitamin D-3 43 pg/mL (.)
== END 2024-07-08 23:59 | disposition home or self-care (01) ==
LOC: LAB.DROPOF 14:43
PROVIDERS: PCP Internal Medicine; Visit Provider Internal Medicine
DX: E03.9 Hypothyroidism, unspecified (principal); Z79.01 Long term (current) use of anticoagulants; G62.9 Polyneuropathy, unspecified; I10 Essential (primary) hypertension; E11.42 Type 2 diabetes mellitus with diabetic polyneuropathy; R25.2 Cramp and spasm; E55.9 Vitamin D deficiency, unspecified; E78.5 Hyperlipidemia, unspecified
CPT/HCPCS: 80053; 80061; 82607; 82652; 83036; 83735; 84443; 85025; 85610

== ENCOUNTER 2024-09-25 13:53 | Emergency (ER) | payer MEDICARE, SELFPAY ==
[2024-09-25 14:03] VITALS: BP 163/82; PULSE 81; O2SAT 99
[2024-09-25 14:07] VITALS: BP 162/82; PULSE 78; RESP 16; TEMP 36.4; O2SAT 99; BMI 48.1
[2024-09-25 14:31] VITALS: BP 151/80; PULSE 73; O2SAT 97
--- NOTE | 2024-09-25 14:44 | ED_ITS ---
<Statement entered by Amelia Salamanca MD - 09/25/24 16:04> I was consulted by the PARVIN, and we discussed the complexity of the problems being addressed. I approved the treatment and management plan for this patient's care in the emergency department, thus performing a substantive portion of the medical decision making. Amelia Salamanca MD, JOSH, FACEP Discharge Plan Disposition Patient Disposition: Home, Self-Care Condition: Good Prescriptions Prescriptions: New doxycycline hyclate 100 mg capsule 100 mg PO BID Qty: 20 0RF amoxicillin-pot clavulanate [Augmentin] 500-125 mg tablet 1 tab PO Q12H Qty: 20 0RF No Action famotidine 20 mg tablet 20 mg PO BID PRN (Reason: heartburn) Qty: 180 1RF fluconazole 150 mg tablet See Rx Instructions PO Q3D Qty: 23 0RF Rx Instructions: 1 p.o. on days 1, 3, and 7 then 1 a week for 6 months. (DME) Accu-Chek Guide test strips Strip See Rx Instructions .ROUTE .MEDSUPPLY Qty: 10 Patient Comments: USE 1 STRIP 3 TO 4 TIMES DAILY Rx Instructions: As directed tirzepatide 2.5 mg/0.5 mL pen injector 2.5 mg SQ WEEKLY 28 Days Qty: 2 0RF cholecalciferol (vitamin D3) 1,250 mcg (50,000 unit) capsule 1,250 mcg PO WEEKLY Qty: 14 3RF warfarin 5 mg tablet 5 mg PO DAILY Qty: 90 1RF Humulin 70/30 U-100 Insulin 100 unit/mL (70-30) suspension 1 sliding scale dose SQ USEASDIRECTD Qty: 40 5RF Rx Instructions: INJECT 100ML TWICE DAILY PER SLIDING SCALE irbesartan 300 mg tablet See Rx Instructions .ROUTE .COMPLEX Qty: 90 1RF Dose Instruction: Take 1 tablet by mouth once daily for 90 days Rx Instructions: Take 1 tablet by mouth once daily for 90 days Mounjaro 5 mg/0.5 mL pen injector See Rx Instructions .ROUTE .COMPLEX Qty: 4 2RF Dose Instruction: INJECT 1 SYRINGE SUBCUTANEOUSLY ONCE A WEEK Rx Instructions: INJECT 1 SYRINGE SUBCUTANEOUSLY ONCE A WEEK levothyroxine [Synthroid] 175 mcg tablet 175 mcg PO DAILY Qty: 90 1RF chlorthalidone 50 mg tablet See Rx Instructions .ROUTE .COMPLEX Qty: 90 1RF Dose Instruction: Take 1 tablet by mouth once daily Rx Instructions: Take 1 tablet by mouth once daily aspirin 81 MG tablet,delayed release (DR/EC) 81 mg PO DAILY Referrals Follow up/Referrals: Erickson Hayes MD [Primary Care Provider] - See instructions Activity Restrictions/Add. Instructions Additional Instructions/Restrictions: Antibiotics as ordered Follow-up PCP as scheduled If symptoms worsen or do not improve return. Clinical Impressions Clinical Impression: Diabetic foot ulcer Instructions Patient Instructions: DI for Diabetic Foot Ulcer Print Language Print Language: Kenyan Discharge ED Provider: Amelia Salamanca General Adult HPI General Chief complaint: Extremity Problem,Nontraumatic Stated complaint: infection in toe pain and swelling Time Seen by Provider: 09/25/24 14:34 Mode of Arrival: Wheelchair Source of Information: Patient Limitations: No Limitations Description of Symptoms (Recalled from ER Triage Doc. by RN): pt presents with complaints of an ulcer on her R second toe. 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 The ulcer is dry and intact. pt states she finished a round of doxycycline and cephalexin this past Friday. pt reports that she has had an increase in swell in her R foot proximal to her R knee. pt reports over the last month she has been treated for a PE and a blood clot from her R thigh distal to her Rankle. She is currently on eliquis for this. pt is an insulin dependent diabetic. History of Present Illness HPI narrative: 64-year-old female presents for an ulcer to her second toe. Patient reports a history of Rachel's foot and 1/5 toe amputation on her right. Ulcer is dry and intact patient states she just finished a round of 7 days of doxycycline and Keflex on Friday and redness returned and due to weather she was afraid she would not be able to get out and infection would get worse. Patient reports history of a PE and a blood clot in her right thigh and she is currently on Eliquis. Patient states she is only here to get a few more days of antibiotics until she can be seen by her PCP. Related Data Home Medications ?Medication ?Instructions ?Recorded ?Confirmed aspirin 81 mg tablet,delayed 81 mg PO DAILY Blood thinner 04/19/18 07/08/24 release blood sugar diagnostic (Accu-Chek #10 ea 04/07/24 07/08/24 Guide test strips) Previous Rx's ?Medication ?Instructions ?Recorded cholecalciferol (vitamin D3) 1,250 1,250 mcg PO WEEKLY #14 caps 04/05/24 mcg (50,000 unit) capsule tirzepatide 2.5 mg/0.5 mL 2.5 mg (0.5 mL) SQ WEEKLY 4 weeks 04/07/24 subcutaneous pen injector #2 mL warfarin 5 mg tablet 5 mg PO DAILY Blood thinner #90 04/08/24 tabs insulin human U-100 NPH-regulr 1 sliding scale dose SQ 06/10/24 70-30 mix 100 unit/mL subcutaneous USEASDIRECTD #40 mL susp (Humulin 70/30 U-100 Insulin) famotidine 20 mg tablet 20 mg PO BID PRN heartburn #180 07/08/24 tabs fluconazole 150 mg tablet See Rx Instructions PO Q3D #23 tabs 07/08/24 irbesartan 300 mg tablet See Rx Instructions .Route 08/04/24 .COMPLEX #90 tabs tirzepatide 5 mg/0.5 mL See Rx Instructions .Route 08/16/24 subcutaneous pen injector .COMPLEX #4 mL (Mounjaro) Synthroid 175 mcg tablet 175 mcg PO DAILY #90 tabs 09/23/24 (levothyroxine) chlorthalidone 50 mg tablet See Rx Instructions .Route 09/23/24 .COMPLEX #90 tabs amoxicillin 500 mg-potassium 1 tab PO Q12H #20 tabs 09/25/24 clavulanate 125 mg tablet (Augmentin) doxycycline hyclate 100 mg capsule 100 mg PO BID #20 caps 09/25/24 Allergies Allergy/AdvReac Type Severity Reaction Status Date / Time clarithromycin Allergy Rash Verified 09/25/24 14:29 clindamycin Allergy Rash Verified 09/25/24 14:29 erythromycin base Allergy Rash Verified 09/25/24 14:29 LATEX Allergy Unknown S-SWELLS-OR Uncoded 07/08/18 10:45 AL/THROAT [facility] Disclaimer: The information contained in this section may have been updated after the patient was seen, as this information can be updated by other users. Medical History (Reviewed 09/25/24 @ 14:48 by Ni Moore ([facility] [employer]) DJD (degenerative joint disease) of knee Social History (Reviewed 09/25/24 @ 14:48 by Ni Moore ([facility] [employer]) Smoking Status: Never smoker alcohol intake: never current occupational status: employed Travel in the last 8 weeks: None Have you lived/traveled outside [place] in past 30 days?: No Contact w/someone who lives/traveled outside US past 30 days?: No Exposure to someone with infectious disease in past 14 days?: No Do you have a fever (greater than 100.4 F or 38 C)?: No Have you tested positive for COVID-19: No Exposed to someone with COVID-19 in past 14 days?: No Do you have a sore throat?: No Do you have a cough?: No Do you have any weakness?: No Do you have any diarrhea?: No Are you experiencing any unusual bleeding?: No Do you have any muscle aches/pain?: No Do you have any abdominal pain?: No Are you experiencing loss of taste or smell?: No Other Medical History Have you received the Flu Vaccine for this season: No Have you received the Pneumonia Vaccine: Yes ROS Obtained: Yes Systems reviewed as appropriate & no additional complaints except as documented Physical Exam General General appearance: alert and in no apparent distress Head Head exam: atraumatic Eye Eye exam: Present normal appearance ENT ENT exam: Present normal exam Respiratory Respiratory exam: Present normal lung sounds bilaterally Cardiovascular Cardiovascular exam: Present regular rate and normal rhythm Extremities Exam Extremities exam: Present normal inspection and normal capillary refill Expanded Lower Extremity Exam Right: Top foot image: 2 1. Amputated 2. Dry scab red area Neurological Exam Neurological exam: Present alert and oriented X3 Skin Skin exam: Present warm Medical Decision Making Medical Records Medical records reviewed: Yes I reviewed the patient's medical records. Screening: Per USPSTF and CDC recommendations, given the prevalence of disease in our region, it is our hospital?s policy to screen for HIV and viral Hepatitis for all patients aged 18 and over and those with ongoing risk factors. Jourdan Inquiry Pt receiving controlled substance: No Jourdan was queried for this patient: No Vital Signs: 09/25/24 14:03 09/25/24 14:07 09/25/24 14:31 Temperature 97.6 F Temperature Source Oral Pulse Rate 81 73 Pulse Rate [Left] 78 Respiratory Rate 16 Blood Pressure 163/82 H 151/80 H Blood Pressure [Right Arm] 162/82 H Blood Pressure Mean [Right Arm] 108 Blood Pressure Source [Right Arm] Automatic Cuff Blood Pressure Position [Right Arm] Sitting 02 Sat by Pulse Oximetry 99 99 97 Oxygen Delivery Method Room Air Room Air Room Air Orders (Tests/Meds): ORDERS Category Date Time Status HIV (1&2) Antibody Rapid Stat Lab 09/25/24 14:21 Ordered Hep C Ab with Reflex to RNA Stat Lab 09/25/24 14:21 Ordered Medical Decision Narrative: In summary patient is a 64-year-old female who presents to the emergency department for evaluation of infection to the second toe. Patient is hemodynamically stable upon arrival, afebrile. Physical exam shows good pedal pulses, dry scabbed area just below nail on second toe. Differential diagnosis includes diabetic ulcer. Initial workup will be conducted with physical exam. Upon repeat evaluation patient states she has a follow-up with her PCP and only needs antibiotics to cover until seen.. Given this patient was appropriate for discharge will discharge home on Augmentin and Bactrim to complete a 10-day course. Critical Care Critical Care Time Critical Care Time: No
[2024-09-25 15:30] VITALS: BP 161/73; PULSE 76; RESP 16; TEMP 36.4; O2SAT 98
== END 2024-09-25 15:31 | disposition home or self-care (01) ==
PROVIDERS: Emergency Provider Student in an Organized Health Care Education/Training Program; PCP Internal Medicine
DX: E11.621 Type 2 diabetes mellitus with foot ulcer (principal); R22.41 Localized swelling, mass and lump, right lower limb; Z79.4 Long term (current) use of insulin
CPT/HCPCS: 99283